=== PATIENT | female | born 1955 | race Caucasian/White ===

== ENCOUNTER 2019-06-06 10:48 | Day surgery (SDC) | payer OTHER, SELFPAY ==
[2019-06-06 11:06] VITALS: BP 121/71; PULSE 67; RESP 14; TEMP 36.4; O2SAT 96; BMI 23.8
[2019-06-06] MEDS: PROPARACAINE 0.5% OPHTH SOL 2 DROPS EYE-OP (11:16)
[2019-06-06] MEDS: CATARACT EYE COMPOUND (10 DROPS/SYRINGE) 3 DROPS EYE-OP (11:17)
--- NOTE | 2019-06-06 12:04 | PM.PREOP ---
Pre-operative Note Interval Note History & Physical reviewed/Exam performed by Physician: No Changes to H&P: No
--- NOTE | 2019-06-06 12:04 | PM.OP.1 ---
Operative Date/Time/Diagnoses Pre-op diagnosis: Nuclear Cataract Left eye Post-op diagnosis: same Procedure & Clinicians Surgeon: Moise Huynh Anesthesia Type: MAC +/- and Sedation Operative Notes Procedure in detail: Patient brought to the operating suite. Tetracaine drops placed in the left eye. Patient was prepped and draped in sterile manner. Wire lid speculum was placed in the eye. Betadine drops were placed on the eye. This was irrigated. Lidocaine jelly was placed on the eye. A paracentesis port was created with a side-port blade. 0.1 mL 1% preservative free lidocaine was injected into the anterior chamber. The anterior chamber was deepened with viscoelastic. 2.6 mm keratome was used to create a temporal clear corneal incision. Cystotome and Utrata forceps were used to create continuous tear capsulorrhexis. Balanced salt solution was used to hydro dissect the nucleus. The phacoemulsification handpiece was inserted and the nucleus was removed using the stop and chop technique. The irrigation aspiration handpiece was inserted and the remaining cortex was removed. Anterior chamber was deepened with viscoelastic. An Orellana ZCB00 intraocular lens with a power of 13.0 was injected into the capsular bag. Irrigation aspiration handpiece was inserted and the remaining viscoelastic was removed. Incision was hydrated with balanced salt solution and found to be leak free with pressure with Weck-Maki sponges. 0.1 mL Vigamox injected anterior chamber. 0.3 mL Kenalog 10 mg was injected subconjunctivally. Lid speculum was removed. The patient left the operating room in excellent condition. Complications: none Post-operative Condition: stable Disposition: same day surgery
[2019-06-06] MEDS: TRIAMCINOLONE 50 MG/5 ML VIAL INJ (12:19)
[2019-06-06] MEDS: MOXIFLOXACIN 0.5% OPHTH 60 DROPS/BOTTLE DROPS EYE-BOTH (12:19)
[2019-06-06] MEDS: PHENYLEPHRINE/LIDOCAINE VIAL (OR) 0.2 ML EYE-OP (12:19)
[2019-06-06] MEDS: CHONDROIDTIN/SOD HYALURONATE 1.05 ML SYRINGE INTRAOCULA (12:19)
[2019-06-06] MEDS: LIDOCAINE JELLY 2% 5 ML 1 APPLIC TOP (12:20)
[2019-06-06] MEDS: TETRACAINE 0.5% OPHTH DROPS 4 ML 2 DROPS EYE-OP (12:20)
[2019-06-06] MEDS: BALANCED SALT IRRIG SOLN NO.2 500 ML, EPINEPHrine 1 MG IRR (12:21)
[2019-06-06 12:45] VITALS: BP 119/67; PULSE 50; RESP 16; TEMP 36.3; O2SAT 97
[2019-06-06 13:04] VITALS: BP 123/62; PULSE 58; TEMP 36.1; O2SAT 96
== END 2019-06-06 13:16 | disposition home or self-care (01) ==
LOC: OR 10:52
PROVIDERS: PCP Internal Medicine; Visit Provider Ophthalmology
PROC: (CPT 66984; principal; 2019-06-06 12:45)
DX: H25.12 Age-related nuclear cataract, left eye (principal)
CPT/HCPCS: 66984; J0171; J2250; J3010; J3301

== ENCOUNTER 2019-06-27 09:01 | Day surgery (SDC) | payer OTHER, SELFPAY ==
[2019-06-27 09:30] VITALS: BP 155/74; PULSE 73; RESP 16; TEMP 36.9; O2SAT 99; BMI 25.0
[2019-06-27] MEDS: PROPARACAINE 0.5% OPHTH SOL 2 DROPS EYE-OP (09:30)
[2019-06-27] MEDS: CATARACT EYE COMPOUND (10 DROPS/SYRINGE) 3 DROPS EYE-OP (09:35)
--- NOTE | 2019-06-27 10:25 | PM.PREOP ---
Pre-operative Note Interval Note History & Physical reviewed/Exam performed by Physician: No Changes to H&P: No
--- NOTE | 2019-06-27 10:25 | PM.OP.1 ---
Operative Date/Time/Diagnoses Pre-op diagnosis: Nuclear cataract right eye Procedure & Clinicians Procedure: Cataract Surgery Same procedure as scheduled: Yes Surgeon: Moise Huynh Anesthesia Type: MAC +/- and Sedation Operative Notes Procedure in detail: Patient brought to the operating suite. Tetracaine drops placed in the right eye. Patient was prepped and draped in sterile manner. Wire lid speculum was placed in the eye. Betadine drops were placed on the eye. This was irrigated. Lidocaine jelly was placed on the eye. A paracentesis port was created with a side-port blade. 0.1 mL 1% preservative free lidocaine was injected into the anterior chamber. The anterior chamber was deepened with viscoelastic. 2.6 mm keratome was used to create a temporal clear corneal incision. Cystotome and Utrata forceps were used to create continuous tear capsulorrhexis. Balanced salt solution was used to hydro dissect the nucleus. The phacoemulsification handpiece was inserted and the nucleus was removed using the stop and chop technique. The irrigation aspiration handpiece was inserted and the remaining cortex was removed. Anterior chamber was deepened with viscoelastic. An Orellana ZCB00 intraocular lens with a power of 13.5 was injected into the capsular bag. Irrigation aspiration handpiece was inserted and the remaining viscoelastic was removed. Incision was hydrated with balanced salt solution and found to be leak free with pressure with Weck-Maki sponges. 0.1 mL Vigamox injected anterior chamber. 0.3 mL Kenalog 10 mg was injected subconjunctivally. Lid speculum was removed. The patient left the operating room in excellent condition. Complications: none Post-operative Condition: stable Disposition: same day surgery
--- NOTE | 2019-06-27 10:42 | SUR.OPER ---
Supine on eye stretcher, head on extension cradle secured with tape. Arms tucked at sides with blanket. Pillow under knees.
[2019-06-27] MEDS: CHONDROIDTIN/SOD HYALURONATE 1.05 ML SYRINGE INTRAOCULA (10:43)
[2019-06-27] MEDS: TRIAMCINOLONE 50 MG/5 ML VIAL INJ (10:43)
[2019-06-27] MEDS: PHENYLEPHRINE/LIDOCAINE VIAL (OR) 0.2 ML EYE-OP (10:43)
[2019-06-27] MEDS: TETRACAINE 0.5% OPHTH DROPS 4 ML 2 DROPS EYE-OP (10:44)
[2019-06-27] MEDS: BALANCED SALT IRRIG SOLN NO.2 500 ML, EPINEPHrine 1 MG IRR (10:44)
[2019-06-27] MEDS: LIDOCAINE JELLY 2% 5 ML 1 APPLIC TOP (10:44)
[2019-06-27] MEDS: MOXIFLOXACIN INJ 5 MG/ML VIAL EYE-OP (10:45)
[2019-06-27 10:53] VITALS: BP 122/72; PULSE 63; RESP 20; TEMP 36.2; O2SAT 98
[2019-06-27 13:12] VITALS: BP 136/67; PULSE 59; O2SAT 96
== END 2019-06-27 11:15 | disposition home or self-care (01) ==
LOC: OR 09:03
PROVIDERS: Visit Provider Ophthalmology
PROC: (CPT 66984; principal; 2019-06-27 10:45)
DX: H25.11 Age-related nuclear cataract, right eye (principal)
CPT/HCPCS: 66984; J0171; J2250; J3010; J3301

== ENCOUNTER → 2020-07-09 14:52 | Outpatient (CLI) | payer OTHER, SELFPAY ==
--- NOTE | 2020-07-09 | DI.ECHO.S_ITS ---
[facility]---------+ [facility] +---------+ : : [id number] [place] : : : : [id number] : : : : Phone: [phone]+ Echocardiogram Report + + :Name: JOSE PHILLIPS Study Date: 07/09/2020 Height: 65 in : :[facility] Weight: 169 lb : : Gender: Female BSA: 1.8 m2 : :: 1955 Age: 64 yrs BP: 152/82 mmHg: :Reason For Study: TAKOTSUBO SYNDROME : :Ordering Physician: KI, : :CONI Performed By: Avril Garibay : :Referring: CONI EMERSON : + + Interpretation Summary The ejection fraction is estimated to be 55-60%. Previously described wall motion abnormalities are no longer seen There is mild mitral regurgitation. There is mild tricuspid regurgitation. Procedure: A two-dimensional transthoracic echocardiogram with color flow and Doppler was performed. The study quality was technically adequate. Comparison is made with the echocardiogram of 08/27/2019. The heart rate ranged between 50-65 bpm during the study. Left Ventricle: The left ventricle is normal in size and wall thickness. The ejection fraction is estimated to be 55-60%. Previously described wall motion abnormalities are no longer seen. Diastolic parameters suggest a pseudonormalization pattern, consistent with probable elevated filling pressures. Right Ventricle: The right ventricle is normal in size and function. Atria: The left atrium is mildly dilated. Right atrial size is normal. There is no Doppler evidence for an interatrial shunt. Mitral Valve: The mitral valve is normal in structure and function. No mitral valve prolapse. There is mild mitral regurgitation. Aortic Valve: The aortic valve is trileaflet. The aortic valve opens well. There is no aortic valve stenosis. There is trace aortic regurgitation. Tricuspid Valve: The tricuspid valve is normal in structure and function. There is mild tricuspid regurgitation. Pulmonary artery pressures cannot be estimated because of the lack of a measurable TR jet velocity but the IVC suggests a CVP of around 3 mmHg. Pulmonic Valve: The pulmonic valve leaflets are thin and pliable; valve motion is normal. There is mild pulmonic regurgitation. Great Vessels: The aortic root is normal size. The dimensions of the ascending aorta are normal. The IVC is of normal diameter and collapses greater than 50% with a sniff. This suggests a low right atrial pressure of 3 mm Hg. Pericardium/ Pleura There is no pericardial effusion. There is no pleural effusion. MMode/2D Measurements & Calculations LVIDd: 4.6 cm LVOT diam: 2.1 cm LVIDs: 3.2 cm Ao root diam: 2.6 cm FS: 31.2 % asc Aorta Diam: 3.0 cm EPSS: 0.78 cm Ao Arch Diam (Prox Trans): 2.5 cm IVSd: 1.0 cm LVPWd: 1.00 cm LV fournier. diameter/BSA (cm/m^2): 2.5 LV sys. diameter/BSA (cm/m^2): 1.7 LA A2 area: 18.6 cm2 RA long axis: 4.5 cm LA A4 area: 21.6 cm2 RA area: 17.2 cm2 LA length (vol): 5.3 cm RA vol: 55.2 ml LA vol: 64.4 ml RA : 30.0 ml/m2 LA vol index: 34.9 ml/m2 IVC diam: 1.4 cm RVD1 (basal): 3.2 cm TAPSE: 2.4 cm Doppler Measurements & Calculations Ao V2 max: 129.4 cm/sec LVOT Max Brennon: 81.8 cm/sec Ao V2 mean: 87.7 cm/sec LV V1 max P.7 mmHg Ao max P.7 mmHg LV V1 VTI: 19.5 cm Ao mean P.4 mmHg MARIA D(I,D): 2.5 cm2 Ao V2 VTI: 27.3 cm MARIA D(V,D): 2.3 cm2 sev ratio: 0.71 MARIA D indexed to BSA (cm^2/m^2): 1.4 MV E max brennon: 79.6 cm/sec PA V2 max: 85.3 cm/sec MV A max brennon: 76.9 cm/sec PA V2 mean: 56.1 cm/sec MV E/A: 1.0 PA mean P.5 mmHg Med Peak E' Brennon: 4.6 cm/sec PA pr(Accel): 1.9 mmHg E/E' med: 17.5 Lat Peak E' Brennon: 6.3 cm/sec E/E' lat: 12.7 E/e' average: 15.1 MV dec time: 0.16 sec SV(LVOT): 69.3 ml Reading Physician:04:35 PM
== END ==
PROVIDERS: PCP Family Medicine; Referring Provider Family Medicine; Visit Provider Internal Medicine Cardiovascular Disease
DX: I08.1 Rheumatic disorders of both mitral and tricuspid valves (principal)
CPT/HCPCS: 93306

== ENCOUNTER → 2020-09-03 08:41 | Outpatient (CLI) | payer MEDICARE, OTHER, SELFPAY ==
[2020-09-03 10:35] LABS: COVID19 -Nasal RAPID Negative (Negative)
== END ==
PROVIDERS: PCP Family Medicine; Visit Provider Family Medicine Sleep Medicine
DX: Z01.812 Encounter for preprocedural laboratory examination (principal); Z20.822 Contact with and (suspected) exposure to COVID-19
CPT/HCPCS: 87635; C9803

== ENCOUNTER → 2022-01-14 09:32 | Outpatient (CLI) | payer MEDICARE, OTHER, SELFPAY ==
--- NOTE | 2022-01-14 | DI.MG.S_ITS ---
UNILATERAL LEFT DIGITAL DIAGNOSTIC MAMMOGRAM 3D/2D WITH ADDITIONAL VIEWS: 01/14/2022 CLINICAL: Additional evaluation requested from prior study. Comparison is made to exam dated: 11/11/2021 mammogram - [facility]. There are scattered fibroglandular elements in left breast. There is a possible benign focal asymmetry in the left breast at 11 o'clock anterior depth. This is not seen in additional views. No other significant masses or calcifications are seen in the breast. IMPRESSION: NEGATIVE There is no mammographic evidence of malignancy. Possible focal asymmetry is not seen on additional views. A 1 year screening mammogram is recommended. This exam was interpreted at Station ID: [id number]. NOTE: For mammograms, a report in lay terms will be sent to the patient. Approximately 15% of breast malignancies will not be visualized mammographically. In the management of a palpable breast mass, a negative mammogram must not discourage biopsy of a clinically suspicious lesion. Electronically Signed By: Boogie Grubbs M.D. slc/:01/14/2022 11:43:16 letter sent: Normal Exam ACR BI-RADS Category 1: Negative [id number]
== END ==
PROVIDERS: PCP Internal Medicine; Referring Provider Internal Medicine; Visit Provider Internal Medicine
DX: R92.8 Other abnormal and inconclusive findings on diagnostic imaging of breast (principal)
CPT/HCPCS: 77065; G0279